=== PATIENT | female | born 1985 | race Caucasian/White ===

== ENCOUNTER 2018-02-15 13:30 | Outpatient (RCR) | payer OTHER | END 2018-02-15 14:00 | disposition home or self-care (01) | LOC: PT 13:30 | DX: S80.11XD Contusion of right lower leg, subsequent encounter (principal); M25.571 Pain in right ankle and joints of right foot; W24.0XXD Contact with lifting devices, not elsewhere classified, subsequent encounter ==

== ENCOUNTER → 2018-03-28 | Outpatient (CLI) | payer OTHER | LOC: RAD 07:45 | DX: S90.01XD Contusion of right ankle, subsequent encounter (principal); M25.571 Pain in right ankle and joints of right foot; M67.471 Ganglion, right ankle and foot ==

== ENCOUNTER → 2018-04-04 | Outpatient (CLI) | payer OTHER | LOC: RAD 08:11 | DX: M25.571 Pain in right ankle and joints of right foot (principal) ==

== ENCOUNTER → 2018-08-01 | Outpatient (CLI) | payer OTHER | LOC: RAD 09:58 | DX: M22.41 Chondromalacia patellae, right knee (principal); S89.91XD Unspecified injury of right lower leg, subsequent encounter ==

== ENCOUNTER 2018-08-24 11:30 | Outpatient (RCR) | payer OTHER | END 2018-08-24 12:00 | disposition still patient (30) | LOC: PT 11:30 | DX: S89.91XD Unspecified injury of right lower leg, subsequent encounter (principal) ==